=== PATIENT | female | born 1965 | race Caucasian/White ===

== ENCOUNTER 2021-09-08 15:32 | Inpatient (IN) | payer MEDICAID ==
[~2021-09-08] VITALS: Ht 162.6 cm; Wt 63.5 kg
[2021-09-08 17:14] LABS: HEMATOCRIT. 29.2 % (36.0-48.0); HEMOGLOBIN. 9.4 g/dL (12.0-16.0); MEAN CORPUSCULAR VOLUME 96.1 fL (81.0-99.0); MEAN PLATELET VOLUME 7.9 fl (7.4-10.4); PLATELET 554 x1000/uL (130-400); RED BLOOD CELL COUNT 3.04 mill/uL (4.2-5.4); RED CELL DISTRIBUTION WIDTH 22.6 % (11.6-14.6)
[2021-09-08 17:18] LABS: CHLORIDE 101 mEq/L (98-107)
[2021-09-08 17:30] LABS: PLATELET ESTIMATE INCREASED
[2021-09-09] MEDS ORDERED: SODIUM CHLORIDE 0.9% 500 ML IV NR (10:15)
[2021-09-09] MEDS ORDERED: ACETAMINOPHEN 325MG TABLET PO PRN (11:00)
[2021-09-09] MEDS: MIDODRINE HCL 5MG TABLET PO SCH ×3 (11:00→17:02)
[2021-09-09] MEDS ORDERED: ONDANSETRON HCL 4MG/2ML INJ IV PRN (11:00)
[2021-09-09 12:00] VITALS: BP 100/60
[2021-09-09 12:46] VITALS: BP 92/55
[2021-09-09 13:16] LABS: CLARITY URINE CLEAR (CLEAR); COLOR URINE YELLOW (YELLOW); KETONES URINE NEGATIVE (NEGATIVE); LEUKOCYTE ESTERASE URINE TRACE (NEGATIVE); NITRITE URINE NEGATIVE (NEGATIVE); OCCULT BLOOD URINE NEGATIVE (NEGATIVE); PH URINE 7.5 (4.5-8.0); PROTEIN URINE NEGATIVE (NEGATIVE); SPECIFIC GRAVITY URINE 1.011 (1.005-1.030)
[2021-09-09 16:00] VITALS: BP 105/68
[2021-09-09 19:03] LABS: *AMPHETAMINES SCREEN URINE NEGATIVE (NEGATIVE); *BARBITURATES SCREEN URINE NEGATIVE (NEGATIVE); *BENZODIAZEPINES SCREEN URINE NEGATIVE (NEGATIVE); *COCAINE SCREEN URINE NEGATIVE (NEGATIVE)
[2021-09-09 19:04] LABS: CANNABINOID URINE SCREEN NEGATIVE (NEGATIVE); METHADONE URINE SCREEN NEGATIVE (NEGATIVE); OPIATES URINE SCREEN NEGATIVE (NEGATIVE); PHENCYCLIDINE URINE SCREEN NEGATIVE (NEGATIVE)
[2021-09-09 20:00] VITALS: BP 107/69
[2021-09-10] VITALS: BP 106/70
[2021-09-10 04:00] VITALS: BP 136/79
[2021-09-10 07:22] LABS: BASOPHILS % 1.4 % (0.0-2.0); EOSINOPHILS % 1.3 % (0.0-5.0); HEMATOCRIT. 25.8 % (36.0-48.0); HEMOGLOBIN. 9.2 g/dL (12.0-16.0); LYMPHOCYTES % 52.1 % (20.0-50.0); MEAN CORPUSCULAR HEMOGLOBIN 35.9 pg (28.0-32.0); MEAN CORPUSCULAR VOLUME 101.1 fL (81.0-99.0); MEAN PLATELET VOLUME 8.4 fl (7.4-10.4); MONOCYTES % 8.7 % (2.0-8.0); NEUTROPHILS % 36.5 % (40.0-76.0); PLATELET 436 x1000/uL (130-400); RED BLOOD CELL COUNT 2.55 mill/uL (4.2-5.4); RED CELL DISTRIBUTION WIDTH 23.3 % (11.6-14.6)
[2021-09-10 07:29] LABS: CHLORIDE 105 mEq/L (98-107)
[2021-09-10 08:00] VITALS: BP 76/41
[2021-09-10] MEDS: MIDODRINE HCL 5MG TABLET PO SCH ×3 (08:39→16:24)
[2021-09-10 12:00] VITALS: BP 88/51
[2021-09-10 16:00] VITALS: BP 88/46
[2021-09-10 20:00] VITALS: BP 93/59
[2021-09-11] VITALS: BP 86/55
[2021-09-11 04:00] VITALS: BP_SYST 82; BP_SYST 92; BP_DIAS 52; BP_DIAS 58
[2021-09-11 06:36] LABS: PROTHROMBIN TIME 10.8 sec (9.6-11.0)
[2021-09-11 06:52] LABS: HEMATOCRIT. 29.8 % (36.0-48.0); HEMOGLOBIN. 10.4 g/dL (12.0-16.0); MEAN CORPUSCULAR HEMOGLOBIN 34.3 pg (28.0-32.0); MEAN CORPUSCULAR VOLUME 98.7 fL (81.0-99.0); MEAN PLATELET VOLUME 8.5 fl (7.4-10.4); PLATELET 419 x1000/uL (130-400); RED BLOOD CELL COUNT 3.02 mill/uL (4.2-5.4); RED CELL DISTRIBUTION WIDTH 24.1 % (11.6-14.6)
[2021-09-11 06:54] LABS: CHLORIDE 104 mEq/L (98-107)
[2021-09-11 06:56] LABS: FERRITIN 522 ng/mL (10-291)
[2021-09-11 07:07] LABS: HEPATITIS B SURFACE ANTIGEN NEGATIVE
[2021-09-11 08:00] VITALS: BP 90/53
[2021-09-11] MEDS: MIDODRINE HCL 5MG TABLET PO SCH ×3 (08:49→16:28)
[2021-09-11 12:00] VITALS: BP 89/50
[2021-09-11 13:25] LABS: PLATELET ESTIMATE SLIGHTLY INCREASED
[2021-09-11 16:00] VITALS: BP 89/59
[2021-09-11 20:00] VITALS: BP 109/69
[2021-09-12] VITALS: BP 93/60
[2021-09-12 04:00] VITALS: BP 91/57
[2021-09-12 08:00] VITALS: BP 91/60
[2021-09-12 08:57] LABS: CHLORIDE 104 mEq/L (98-107)
[2021-09-12] MEDS: MIDODRINE HCL 5MG TABLET PO SCH ×3 (09:32→17:48)
[2021-09-12 12:00] VITALS: BP 95/54
[2021-09-12] MEDS ORDERED: FURO20TA4 MT (15:24)
[2021-09-12] MEDS ORDERED: TRAZ-251 MT (15:24)
[2021-09-12] MEDS ORDERED: FERR325T6 MT (15:24)
[2021-09-12] MEDS ORDERED: SIMV-43 MT (15:24)
[2021-09-12] MEDS ORDERED: SPIR25TA6 MT (15:24)
[2021-09-12] MEDS ORDERED: ATOR20TA MT (15:24)
[2021-09-12] MEDS ORDERED: DIPH25CA83 PO (15:24)
[2021-09-12 16:00] VITALS: BP 92/50
[2021-09-12 17:34] VITALS: BP 92/50
== END 2021-09-12 19:11 | disposition home or self-care (01) ==
LOC: ER 15:32 → MICUSO 21:36 → 6EST 09-09 11:38
PROVIDERS: ADMIT Internal Medicine; ATTEND Internal Medicine
DX: K80.20 Calculus of gallbladder without cholecystitis without obstruction (principal); E43 Unspecified severe protein-calorie malnutrition; K83.09 Other cholangitis; N18.6 End stage renal disease; F20.9 Schizophrenia, unspecified; D53.9 Nutritional anemia, unspecified; R74.01 Elevation of levels of liver transaminase levels; Z20.822 Contact with and (suspected) exposure to COVID-19; Z85.09 Personal history of malignant neoplasm of other digestive organs; Z68.24 Body mass index [BMI] 24.0-24.9, adult; Z86.19 Personal history of other infectious and parasitic diseases
CPT/HCPCS: 36415; 74181; 76700; 80048; 80053; 80076; 80305; 81003; 82105; 82140; 82378; 82728; 83540; 85025; 85044; 86301; 86705; 86709; 86803; 87340; 87426; 97162; 99285